=== PATIENT | female | born 1985 | race Caucasian/White ===

== ENCOUNTER 2018-11-06 19:25 | Inpatient (IN) | payer OTHER ==
[2018-11-06] MEDS ORDERED: AMPICILLIN SODIUM 2 GM VIAL ONE (20:07)
[2018-11-06] MEDS ORDERED: FENTANYL/BUPIVACAINE/NS/PF - PCEA - 50 ML DISP.SYRIN EP ONE (20:19)
[2018-11-06 20:20] LABS: BASO % 0.3 % (0-2.0); EOS % 0.9 % (0-4.5); HEMATOCRIT 31.1 % (32.4-45.2); HEMOGLOBIN 10.4 GM/dL (10.7-15.3); LYMPH % 20.3 % (8-40); MCH 26.3 pg (25.7-33.7); MCHC 33.4 g/dl (32.0-36.0); MEAN CELL VOLUME 78.8 fl (80-96); MEAN PLT VOLUME 8.3 fl (7.5-11.1); MONO % 8.1 % (3.8-10.2); NEUT % 70.4 % (42.8-82.8); PLATELET COUNT 259 K/MM3 (134-434); RBC 3.94 M/mm3 (3.60-5.2)
[2018-11-06] MEDS ORDERED: NALOXONE HCL 0.4 MG/ML VIAL IVPUSH PRN (20:20)
[2018-11-06] MEDS ORDERED: LIDO 2%/EPI 1:200000 PRESRVFRE (20 ML SDVIAL) ONE ×2 (20:22→20:35)
[2018-11-06] MEDS ORDERED: ELECTROLYTE-148 SOLN 500 ML IV ONE ×2 (20:30→21:30)
[2018-11-06 20:31] LABS: URINE APPEARANCE SLCLOUDY; URINE BILIRUBIN NEGATIVE (<2.0 mg/dL); URINE COLOR AMBER; URINE GLUCOSE (UA) NEGATIVE (NEGATIVE); URINE KETONE 2+ (NEGATIVE); URINE LEUK ESTERASE 1+ (NEGATIVE); URINE NITRITE NEGATIVE (NEGATIVE); URINE PROTEIN 2+ (NEGATIVE); URINE UROBILINOGEN NEGATIVE mg/dL (0.2-1.0)
[2018-11-06 20:32] LABS: INR 0.92 (0.83-1.09); PROTHROMBIN TIME (PATIENT) 10.9 SEC (9.7-13.0)
[2018-11-06 20:35] LABS: ACTIVATED PTT 21.4 SECONDS (25.2-36.5)
[2018-11-06] MEDS: FENTANYL/BUPIVACAINE/NS/PF - PCEA - 50 ML DISP.SYRIN EP SCH (20:35)
[2018-11-06 20:54] LABS: EPI CELLS MODERATE /HPF (FEW); URINE MUCUS RARE
[2018-11-06] MEDS ORDERED: OXYTOCIN 30 UNITS in 0.9% NS 30 UNIT/500 ML INFUS.BAG IVPB ONE (20:56)
[2018-11-06 21:19] LABS: ALBUMIN 2.9 g/dl (3.4-5.0); ALK PHOS 137 U/L (45-117); ANION GAP 13 MMOL/L (8-16); BILIRUBIN,TOTAL 0.4 mg/dL (0.2-1); BLOOD UREA NITROGEN 11 mg/dL (7-18); CALCIUM 8.2 mg/dL (8.5-10.1); CHLORIDE 104 mmol/L (98-107); CO2 20 mmol/L (21-32); CREATININE 0.7 mg/dL (0.55-1.3); GLUCOSE,RANDOM 76 mg/dL (74-106); POTASSIUM 4.1 mmol/L (3.5-5.1); SGOT/AST 17 U/L (15-37); SGPT/ALT 16 U/L (13-61); SODIUM 137 mmol/L (136-145); TOT PROT 6.4 g/dl (6.4-8.2)
[2018-11-06 21:39] VITALS: BMI 31.0
[2018-11-06] MEDS ORDERED: OXYTOCIN 30 UNITS in 0.9% NS 30 UNIT/500 ML INFUS.BAG IVPB SCH (22:30)
[2018-11-06] MEDS ORDERED: ELECTROLYTE-148 SOLN 1,000 ML IV SCH (23:30)
--- NOTE | 2018-11-06 23:39 | PN ---
Progress Note (short form) - Note Progress Note: cx 8 cm 80 vx -1 mr, clear, fhr cat1 , regular contraction .anticipate vaginal delivery
--- NOTE | 2018-11-06 23:44 | HP ---
Past Medical History - Primary Care Physician PCP:: Darryn Tamaoy - Admission Chief Complaint: 39 weeks, labor History of Present Illness: 33 yo f g 2 p1001 edc by tavo 11/11/18 39 weeks, c/o contraction sine 330 pm today , had srom at 10 30 pm tonight , clear fluid , cx 8 cm 80 vx -1 mr, fhr cat 1, irregular contraction on pitocin now , no fever, no vaginal bleeding History Source: Patient Limitations to Obtaining History: No Limitations - Past Medical History ...: 2 ...Para: 1 ...Term: 1 ...: 0 ...Spon : 0 ...Induced : 0 ...Multiple Gestation: 0 ...LMP: 02/04/18 ... Weeks Gestation by Dates: 39.2 ...EDC by Dates: 11/11/18 Additional OB History: one , no complication , wt 8.8 Heme/Onc: Yes: Anemia Endocrine: Yes: Other (thyroid nodule , biopsy benign) - Past Surgical History Hx Myomectomy: No Hx Transabdominal Cerclage: No - Smoking History Smoking history: Never smoked Have you smoked in the past 12 months: No - Alcohol/Substance Use Hx Alcohol Use: No - Social History Usual Living Arrangement: Yes: With Spouse History of Recent Travel: No Home Medications - Allergies Allergies/Adverse Reactions: Allergies Allergy/AdvReac Type Severity Reaction Status Date / Time No Known Drug Allergies Allergy Verified 11/06/18 20:20 - Home Medications Home Medications: Ambulatory Orders Clindamycin 1% Gel [Cleocin *Gel*] 1 applic TP PRN 11/06/18 Vit 108/Iron/Folic AC [ One Tablet] 1 each PO DAILY 11/06/18 Review of Systems - Review of Systems Constitutional: reports: No Symptoms Eyes: reports: No Symptoms HENT: reports: No Symptoms Neck: reports: No Symptoms Cardiovascular: reports: No Symptoms Respiratory: reports: No Symptoms Gastrointestinal: reports: No Symptoms Genitourinary: reports: No Symptoms Breasts: reports: No Symptoms Reported Musculoskeletal: reports: No Symptoms Integumentary: reports: No Symptoms Neurological: reports: No Symptoms Endocrine: reports: No Symptoms Hematology/Lymphatic: reports: No Symptoms Psychiatric: reports: No Symptoms Physical Exam - Maternity Vital Signs: Vital Signs Temperature 98.4 F 11/06/18 21:46 Pulse Rate 99 H 11/06/18 21:30 Respiratory Rate 19 11/06/18 21:30 Blood Pressure 118/59 L 11/06/18 21:30 O2 Sat by Pulse Oximetry (%) 100 11/06/18 21:30 Constitutional: Yes: Well Nourished, No Distress, Calm Eyes: Yes: WNL, Conjunctiva Clear, EOM Intact HENT: Yes: WNL, Atraumatic, Normocephalic Neck: Yes: WNL, Supple, Trachea Midline Cardiovascular: Yes: WNL, Regular Rate and Rhythm Breast(s): Yes: WNL - Abdominal Exam/OB Fundal Height: 40 Number of Fetuses: Single Presentation: Vertex Contractions: Yes Regularity: Irregular Intensity: Moderate Monitor Mode: External Heart Rate Location: [facility] Category: I Accelerations: Uniform Decelerations: None - Vaginal Exam/OB Vaginal Bleediing: No Speculum Exam: No Dilatation (cm): 8 cm Effacement (%): 80 Amniotic Membrane Status: Ruptured Nitrazine Test: Positive Amniotic Fluid: Yes: Clear Station: -1 - Physical Exam Musculoskeletal: Yes: WNL Extremities: Yes: WNL Edema: LLE: Trace, RLE: Trace Integumentary: Yes: WNL Deep Tendon Reflex Grade: Normal +2 ...Motor Strength: WNL Psychiatric: Yes: WNL - Labs Lab Results: CBC, BMP 11/06/18 20:01 11/06/18 20:00 Hemorrhage Risk Assessment - Risk Factors Medium Risk Factors: Yes: None High Risk Factors: Yes: None Risk Score: 1 Risk Level: Medium Risk Problem List - Problems (1) with 39 completed weeks gestation Code(s): Z3A.39 - 39 WEEKS GESTATION OF (2) Advanced maternal age (AMA) in Code(s): WUE5487 - (3) Labor established Code(s): GBY9497 - Assessment/Plan admit, fhm, pain management with epidural pitocin stimulation
[2018-11-07] MEDS ORDERED: FENTANYL/BUPIVACAINE/NS/PF - PCEA - 50 ML DISP.SYRIN EP ONE
[2018-11-07] MEDS ORDERED: OXYTOCIN 20 UNITS in 0.9% NS 20 UNIT/1,000 ML INFUS.BAG IV ONE (00:20)
[2018-11-07] MEDS ORDERED: BENZOCAINE 20% 57 GM BOTTLE TP PRN (00:48)
[2018-11-07] MEDS ORDERED: BENZOCAINE 28 GM HEMORRHOIDAL OINTMENT TP PRN (00:48)
[2018-11-07] MEDS ORDERED: METHYLERGONOVINE MALEATE 0.2 MG/1 ML AMP IM PRN (00:48)
[2018-11-07] MEDS ORDERED: WITCH HAZEL 50% (TUCKS) 40 PAD/JAR PAD TP PRN (00:48)
--- NOTE | 2018-11-07 00:48 | PN ---
Progress Note (short form) - Note Progress Note: cx full 100 vx 0 mr, fhr cat 1, pushing with contraction Problem List - Problems (1) with 39 completed weeks gestation Code(s): Z3A.39 - 39 WEEKS GESTATION OF (2) Advanced maternal age (AMA) in Code(s): NWM2909 - (3) Labor established Code(s): OOY2144 -
[2018-11-07] MEDS ORDERED: D5W-LR W/ 20 UNITS OXYTOCIN 1,000 ML IV SCH (01:00)
[2018-11-07] MEDS ORDERED: OXYTOCIN 20 UNITS in 0.9% NS 20 UNIT/1,000 ML INFUS.BAG IV SCH (01:00)
--- NOTE | 2018-11-07 01:22 | PN ---
Delivery - Delivery Vaginal Delivery: Spontaneous Type of Anesthesia: Epidural (ant, post shoulder delivered with no difficulty over intact perinum , no laceration, EBL 3oocc, no complication) Delivery, Single - Feeding Plan Initial Plan: Exclusive throughout hospitalization
[2018-11-07 01:34] LABS: ARTERIAL BLD GAS O2 SATURATION 25.4 % (90-98.9); ARTERIAL BLOOD GAS BASE EXCESS -2.1 meq/l (-2-2); ARTERIAL BLOOD GAS PCO2 61.1 mmHg (35-45); ARTERIAL BLOOD GAS PO2 19.6 mmHg (80-100); ARTERIAL BLOOD GAS pH 7.26 (7.35-7.45)
[2018-11-07 01:34] LABS: VENOUS PC02 40.5 mmHg (38-52); VENOUS PH 7.37 (7.32-7.42)
[2018-11-07 01:35] LABS: VENOUS PO2 33.9 mmHg (28-48)
[2018-11-07] MEDS ORDERED: IBUPROFEN 600 MG TABLET (FP) PO ONE (02:06)
[2018-11-07] MEDS ORDERED: ACETAMINOPHEN 325 MG TABLET (FP) ONE (02:06)
[2018-11-07] MEDS: ACETAMINOPHEN 325 MG TABLET (FP) PO PRN ×5 (02:10→22:56)
[2018-11-07] MEDS: IBUPROFEN 600 MG TABLET (FP) PO PRN ×5 (02:10→22:55)
--- NOTE | 2018-11-07 08:52 | PN ---
Progress Note (short form) - Note Progress Note: ppd 0 , s/p no c/o ,no excess vaginal bleeding, no dizziness voids ok CBC, BMP 11/06/18 20:01 11/06/18 20:00 Last Vital Signs Temp Pulse Resp BP Pulse Ox 97.8 F 75 20 121/53 L 100 11/07/18 08:36 11/07/18 08:36 11/07/18 08:36 11/07/18 08:36 11/07/18 01:55 abdomen soft, uterus firm, non tender lochia minimal perinium clean , intact no calf tenderness impression ppd 0 , doing wll plan ambulate, cbc in am , Problem List - Problems (1) with 39 completed weeks gestation Code(s): Z3A.39 - 39 WEEKS GESTATION OF (2) Advanced maternal age (AMA) in Code(s): UHI7230 - (3) Labor established Code(s): QJS3632 -
[2018-11-07] MEDS: FERROUS SO4 325 MG TABLET (FP) PO SCH ×2 (09:29→22:55)
[2018-11-07] MEDS: PRENATAL VITAMINS W/ FOLIC ACID TABLET (FP) PO SCH (09:29)
[2018-11-07 09:39] LABS: RPR NONREACTIVE (NONREACTIVE)
[2018-11-07] MEDS: BISACODYL 10 MG SUPP.RECT RC PRN (14:15)
[2018-11-08 02:12] LABS: HBsAG SCREEN Negative (Negative)
[2018-11-08] MEDS: ACETAMINOPHEN 325 MG TABLET (FP) PO PRN ×3 (04:01→21:03)
[2018-11-08] MEDS: IBUPROFEN 600 MG TABLET (FP) PO PRN ×3 (04:01→21:03)
[2018-11-08 06:02] LABS: BASO % 0.4 % (0-2.0); EOS % 1.8 % (0-4.5); HEMATOCRIT 25.7 % (32.4-45.2); HEMOGLOBIN 8.8 GM/dL (10.7-15.3); LYMPH % 22.9 % (8-40); MCHC 34.3 g/dl (32.0-36.0); MEAN CELL VOLUME 78.7 fl (80-96); MEAN PLT VOLUME 7.9 fl (7.5-11.1); MONO % 8.3 % (3.8-10.2); NEUT % 66.6 % (42.8-82.8); PLATELET COUNT 211 K/MM3 (134-434); RBC 3.26 M/mm3 (3.60-5.2); RDW 14.2 % (11.6-15.6); WHITE BLOOD COUNT 9.4 K/mm3 (4.0-10.0)
[2018-11-08 07:19] LABS: RUBELLA IgG ANTIBODY < 0.90 index (Immune >0.99)
--- NOTE | 2018-11-08 08:00 | DS ---
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: Vital Signs Temperature 98.3 F 11/08/18 06:00 Pulse Rate 85 11/08/18 06:00 Respiratory Rate 20 11/08/18 06:00 Blood Pressure 120/80 11/08/18 06:00 O2 Sat by Pulse Oximetry (%) 100 11/07/18 01:55 Constitutional: Yes: Well Nourished, No Distress, Calm Eyes: Yes: WNL, Conjunctiva Clear, EOM Intact HENT: Yes: WNL, Atraumatic, Normocephalic Neck: Yes: WNL, Supple, Trachea Midline Cardiovascular: Yes: WNL, Regular Rate and Rhythm Respiratory: Yes: WNL, Regular, CTA Bilaterally Gastrointestinal: Yes: WNL ...Rectal Exam: Yes: WNL Renal/: Yes: WNL External Genitalia: Yes: Normal Vaginal Exam: Yes: Normal ....Post : Yes: Uterus firm, Uterus non-tender, Slight lochia rubra Breast(s): Yes: WNL Musculoskeletal: Yes: WNL Extremities: Yes: WNL Edema: Yes Edema: LLE: Trace, RLE: Trace Integumentary: Yes: WNL Neurological: Yes: WNL, Alert, Oriented ...Motor Strength: WNL Psychiatric: Yes: WNL, Alert, Oriented Labs: CBC, BMP 11/08/18 05:56 11/06/18 20:00 Delivery - Delivery Vaginal Delivery: Spontaneous (no complication) Type of Anesthesia: Epidural Episiotomy/Laceration: None EBL (cc): 300 Delivery, Single - Stages of Labor Date 1st Stage Initiatied: 11/06/18 Time 1st Stage Initiated: 15:30 Date 2nd Stage Initiated: 11/07/18 Time 2nd Stage Initiated: 00:35 Date of Delivery: 11/07/18 Time of Delivery: 00:52 Time Placenta Delivered: 00:55 Placenta: Yes: Spontaneous - 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 Present: No Infant Gender: Female Weight: 8 lb 7 oz Position: Left, OA Total Hours ROM (Hrs/Mins): 2hrs 25min - 1 Minute Total Score: 9 5 Minutes Total Score: 9 - Feeding Plan Initial Plan: Exclusive throughout hospitalization Discharge Summary Reason For Visit: LABOR Current Active Problems Advanced maternal age (AMA) in (Acute) Labor established (Acute) with 39 completed weeks gestation (Acute) Procedures: Principal: Hospital Course: no complication Condition: Good - Instructions Diet, Activity, Other Instructions: regular diet, follow up 4 weeks, if pain ,fever, heavy vaginal bleeding call MD Referrals: Darryn Tamayo MD [Staff Physician] - Disposition: HOME - Home Medications Comprehensive Discharge Medication List: Ambulatory Orders Clindamycin 1% Gel [Cleocin *Gel*] 1 applic TP PRN 11/06/18 Vit 108/Iron/Folic AC [ One Tablet] 1 each PO DAILY 11/06/18 Ibuprofen [Motrin -] 600 mg PO QID #28 tablet 11/07/18
[2018-11-08] MEDS: FERROUS SO4 325 MG TABLET (FP) PO SCH ×2 (09:46→22:12)
[2018-11-08] MEDS: PRENATAL VITAMINS W/ FOLIC ACID TABLET (FP) PO SCH (09:46)
[2018-11-08 11:45] LABS: ANISOCYTOSIS 2+; MACROCYTOSIS 0; OVALOCYTE 1+; PLATELET ESTIMATE NORMAL
[2018-11-08] MEDS: BISACODYL 10 MG SUPP.RECT RC PRN (21:02)
[2018-11-08] MEDS ORDERED: SENNOSIDES/DOCUSATE COMBO (SENNA PLUS) TABLET (UD) PO PRN (22:00)
[2018-11-09] MEDS: ACETAMINOPHEN 325 MG TABLET (FP) PO PRN ×2 (04:32→11:12)
[2018-11-09] MEDS: IBUPROFEN 600 MG TABLET (FP) PO PRN ×2 (04:32→11:11)
[2018-11-09] MEDS: FENTANYL/BUPIVACAINE/NS/PF - PCEA - 50 ML DISP.SYRIN EP SCH (07:22)
[2018-11-09 09:26] VITALS: BP 140/74; PULSE 102; TEMP 98.5
[2018-11-09] MEDS: FERROUS SO4 325 MG TABLET (FP) PO SCH (09:54)
[2018-11-09] MEDS: PRENATAL VITAMINS W/ FOLIC ACID TABLET (FP) PO SCH (09:54)
--- NOTE | 2018-11-09 11:02 | PN ---
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
== END 2018-11-09 14:05 | disposition home or self-care (01) | DRG 807 ==
LOC: JLDR 19:25 → J3W 11-07 02:38
PROVIDERS: ADMIT Obstetrics & Gynecology; ATTEND Obstetrics & Gynecology
PROC: 10E0XZZ Delivery of Products of Conception, External Approach (ICD-10-PCS; principal; 2018-11-07)
DX: O80 Encounter for full-term uncomplicated delivery (principal); Z37.0 Single live birth; Z3A.39 39 weeks gestation of pregnancy
CPT/HCPCS: 36415; 36600; 59409; 80048; 80053; 81003; 81015; 82803; 85025; 85610; 85730; 86593; 86762; 86850; 86900; 86901; 87340; 87389

== ENCOUNTER 2020-10-13 07:39 | Inpatient (IN) | payer OTHER ==
[2020-10-13] MEDS ORDERED: BUTORPHANOL TARTRATE 2 MG/ML VIAL IVPUSH PRN (08:07)
[2020-10-13] MEDS ORDERED: PROMETHAZINE HCL 25 MG/1 ML VIAL IVPUSH ONE (08:07)
[2020-10-13 09:00] LABS: BASO % 0.5 % (0-2.0); EOS % 1.2 % (0-4.5); HEMATOCRIT 37.2 % (32.4-45.2); HEMOGLOBIN 12.5 GM/dL (10.7-15.3); LYMPH % 17.6 % (8-40); MCH 29.4 pg (25.7-33.7); MCHC 33.7 g/dl (32.0-36.0); MEAN CELL VOLUME 87.1 fl (80-96); MEAN PLT VOLUME 8.5 fl (7.5-11.1); MONO % 6.7 % (3.8-10.2); PLATELET COUNT 241 K/MM3 (134-434); RBC 4.27 M/mm3 (3.60-5.2); RDW 15.2 % (11.6-15.6); WHITE BLOOD COUNT 8.3 K/mm3 (4.0-10.0)
[2020-10-13] MEDS: DEXTROSE 5%-LACTATED RINGERS 1,000 ML IV SCH (09:00)
[2020-10-13 09:09] LABS: INR 0.92 (0.83-1.09); PROTHROMBIN TIME (PATIENT) 11.2 SEC (9.7-13.0)
[2020-10-13 09:12] LABS: ACTIVATED PTT 24.9 SECONDS (25.2-36.5)
[2020-10-13 09:16] LABS: BLOOD UREA NITROGEN 11.2 mg/dL (7-18); CALCIUM 8.7 mg/dL (8.5-10.1)
[2020-10-13] MEDS ORDERED: OXYTOCIN 30 UNITS in 0.9% NS 30 UNIT/500 ML INFUS.BAG IVPB ONE (09:18)
[2020-10-13 09:20] LABS: CREATININE 0.7 mg/dL (0.55-1.3)
[2020-10-13] MEDS: OXYTOCIN 30 UNITS in 0.9% NS 30 UNIT/500 ML INFUS.BAG IVPB SCH (09:45)
[2020-10-13 10:46] VITALS: BMI 31.0
[2020-10-13] MEDS ORDERED: PCA PUMP NR ONE (13:08)
[2020-10-13] MEDS ORDERED: FENTANYL/BUPIVACAINE/NS/PF - PCEA - 50 ML DISP.SYRIN EP ONE (13:08)
[2020-10-13] MEDS ORDERED: OXYTOCIN 20 UNITS in 0.9% NS 20 UNIT/1,000 ML INFUS.BAG IV ONE (15:36)
[2020-10-13] MEDS ORDERED: LIDOCAINE HCL 1% PRESERVATIVE FREE - 30ML VIAL ONE (15:36)
[2020-10-13] MEDS ORDERED: NALOXONE HCL 0.4 MG/ML VIAL IVPUSH PRN (15:39)
[2020-10-13] MEDS: OXYTOCIN 20 UNITS in 0.9% NS 20 UNIT/1,000 ML INFUS.BAG IV SCH (16:10)
[2020-10-13] MEDS ORDERED: IBUPROFEN 600 MG TABLET (FP) PO ONE (18:31)
[2020-10-13] MEDS ORDERED: ACETAMINOPHEN 325 MG TABLET (FP) ONE (18:31)
[2020-10-13] MEDS: IBUPROFEN 600 MG TABLET (FP) PO PRN (18:40)
[2020-10-13] MEDS: ACETAMINOPHEN 325 MG TABLET (FP) PO PRN (18:40)
[2020-10-13] MEDS ORDERED: BENZOCAINE 28 GM HEMORRHOIDAL OINTMENT TP PRN (18:52)
[2020-10-13] MEDS ORDERED: BENZOCAINE 20% 57 GM BOTTLE TP PRN (18:52)
[2020-10-13] MEDS ORDERED: WITCH HAZEL 50% (TUCKS) 40 PAD/JAR PAD TP PRN (18:52)
[2020-10-13] MEDS ORDERED: BISACODYL 10 MG SUPP.RECT RC PRN (18:52)
[2020-10-13] MEDS ORDERED: METHYLERGONOVINE MALEATE 0.2 MG/1 ML AMP IM PRN (18:52)
[2020-10-13] MEDS: FENTANYL/BUPIVACAINE/NS/PF - PCEA - 50 ML DISP.SYRIN EP SCH (19:07)
[2020-10-13] MEDS ORDERED: oxyCODONE HCL 5 MG TABLET PO PRN (19:59)
[2020-10-13] MEDS: FERROUS SO4 325 MG TABLET (FP) PO SCH (22:09)
[2020-10-14] MEDS: IBUPROFEN 600 MG TABLET (FP) PO PRN ×4 (00:34→20:31)
[2020-10-14] MEDS: ACETAMINOPHEN 325 MG TABLET (FP) PO PRN ×4 (00:35→20:31)
[2020-10-14] MEDS: DEXTROSE 5%-LACTATED RINGERS 1,000 ML IV SCH (08:18)
[2020-10-14 09:01] LABS: BASO % 0.3 % (0-2.0); EOS % 1.2 % (0-4.5); HEMATOCRIT 32.1 % (32.4-45.2); LYMPH % 15.9 % (8-40); MCH 29.5 pg (25.7-33.7); MCHC 34.3 g/dl (32.0-36.0); MEAN CELL VOLUME 86.2 fl (80-96); MEAN PLT VOLUME 8.5 fl (7.5-11.1); MONO % 6.9 % (3.8-10.2); NEUT % 75.7 % (42.8-82.8); PLATELET COUNT 201 K/MM3 (134-434); RBC 3.72 M/mm3 (3.60-5.2); WHITE BLOOD COUNT 10.1 K/mm3 (4.0-10.0)
[2020-10-14] MEDS: FERROUS SO4 325 MG TABLET (FP) PO SCH ×2 (10:07→22:10)
[2020-10-14] MEDS: PRENATAL VITAMINS W/ FOLIC ACID TABLET (FP) PO SCH (10:07)
[2020-10-14] MEDS: FENTANYL/BUPIVACAINE/NS/PF - PCEA - 50 ML DISP.SYRIN EP SCH (20:23)
[2020-10-14] MEDS: OXYTOCIN 30 UNITS in 0.9% NS 30 UNIT/500 ML INFUS.BAG IVPB SCH (20:23)
[2020-10-14] MEDS: OXYTOCIN 20 UNITS in 0.9% NS 20 UNIT/1,000 ML INFUS.BAG IV SCH (20:23)
[2020-10-14] MEDS ORDERED: SENNOSIDES/DOCUSATE COMBO (SENNA PLUS) TABLET (UD) PO PRN (22:00)
[2020-10-15] MEDS: IBUPROFEN 600 MG TABLET (FP) PO PRN ×2 (04:03→09:47)
[2020-10-15] MEDS: ACETAMINOPHEN 325 MG TABLET (FP) PO PRN ×2 (04:04→09:48)
[2020-10-15] MEDS: FERROUS SO4 325 MG TABLET (FP) PO SCH (09:48)
[2020-10-15] MEDS: PRENATAL VITAMINS W/ FOLIC ACID TABLET (FP) PO SCH (09:48)
[2020-10-15 12:51] VITALS: BP 120/73; PULSE 85; TEMP 98.3
== END 2020-10-15 13:30 | disposition home or self-care (01) | DRG 560 ==
LOC: JLDR 07:39 → J3W 19:51
PROVIDERS: ADMIT Obstetrics & Gynecology; ATTEND Obstetrics & Gynecology
PROC: 10E0XZZ Delivery of Products of Conception, External Approach (ICD-10-PCS; principal; 2020-10-13)
PROC: 10907ZC Drainage of Amniotic Fluid, Therapeutic from Products of Conception, Via Natural or Artificial Opening (ICD-10-PCS; 2020-10-13)
DX: O99.02 Anemia complicating childbirth (principal); D64.9 Anemia, unspecified; Z3A.39 39 weeks gestation of pregnancy; Z37.0 Single live birth; Z86.39 Personal history of other endocrine, nutritional and metabolic disease
CPT/HCPCS: 36415; 59409; 80048; 85025; 85610; 85730; 86780; 86850; 86900; 86901; 87389; C9803; U0003